=== PATIENT | male | born 1955 | race Caucasian/White ===

== ENCOUNTER 2018-08-06 13:06 | Emergency (ER) | payer OTHER | END 2018-08-06 16:55 | disposition home or self-care (01) | LOC: FTE 16:55 | DX: S93.402A Sprain of unspecified ligament of left ankle, initial encounter (principal); W18.39XA Other fall on same level, initial encounter; Y92.89 Other specified places as the place of occurrence of the external cause | CPT/HCPCS: 73610; 99283-25 ==